=== PATIENT | female | born 1995 | race Caucasian/White ===

== ENCOUNTER 2023-02-23 13:37 | Inpatient (IN) ==
[2023-02-24] MEDS ORDERED: OXYTOCIN 30 UNITS/500 ML BAG IV PRN ×3 (09:20→22:53)
[2023-02-24] MEDS ORDERED: LIDOCAINE 1% LOCAL 20 ML VIAL INFIL PRN (09:20)
[2023-02-24] MEDS ORDERED: PENICILLIN G POTASSIUM 6 MU in DEXTROSE 5% 250 ML IV STA (09:23)
--- NOTE | 2023-02-24 09:36 | History & Physical Report ---
Date of Service February 24, 2023 Assessment & Plan (1) Supervision of normal first : Plan: Admit to L&D for induction of labor with Pena balloon and pitocin VSSLabor induction with Pena balloon and Pitocin to be started. Patient is GBS positive. Will treat with Penicillin during labor. Category 1 FHT Epidural prn Admission and Anticipated Discharge Date Admission Date: February 24, 2023 History of Present Illness Chief Complaint: Normal at 40+ weeks gestation. Induction of labor. Primary Care Provider: Ford Barahona is a 27y/o female G1 currently at IU at 40 4/7 WGA with an KRUPA 02/20/2023 as determined by certain LMP who is here for IOL due to post dates. No complications associated to current . (-) contractions (irregular) (+) movement (-) fluid loss (-) vaginal bleeding External FHT and external uterine monitors used * Category 1 tracing with accels, no decels, and moderate variability * FHR at 125-30s Had regular appointments with Dr. Hernandez since second trimester. Previ ously being followed up by [facility] since her first trimester. Labs: (07/23/2022) * Blood type: O positive * Antibody screen: negative * H.7 (today) * Hct: 35.2 (today) * MCV: 87.6 (today) * WBC: 7.2 (today) * Plt: 123 (today) * Rubella: immune * VDRL/RPR: non-reactive * Gonorrhea: not detected * Chlamydia: not detected * HIV: non-reactive * HbSAg: non-reactive * Hep C IgG 13 yrs + old: non-reactive * GBS: positive * Declined CS, SMA, and Panorama Allergies Allergy/AdvReac Type Severity Reaction Status Date / Time No Known Allergies Allergy Verified 02/24/23 08:00 Home Medications Medication Instructions Recorded Confirmed Type prenat.vits,joselyn,[id number] 1 tab PO DAILY 08/29/22 02/24/23 History Patient History Medical History (Updated 02/24/23 @ 09:52 by Freda Blackman MD) Hx of migraines Scoliosis Supervision of normal first Varicella vaccination Surgical History S/P wisdom tooth extraction Family History Grandmother (Maternal) Breast cancer Denies family history of Ovarian cancer Colorectal cancer Social History (Updated 08/29/22 @ 13:10 by Brittany Akhtar) Smoking Status: Never smoker Do You Dip or Chew Tobacco: No; Hx Alcohol Use: No Hx Substance Use: No Preferred Language: [place] Tenter Frame Operator Required: No Beliefs That Will Affect Care: None marital status: marital status details: Ke White (24) [phone] Current Living Situation: Spouse Current Living Situation Comment: lives with spouse, outside [place] current occupational status: employed 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 Other Information That Helps Us Care for You: No Feels Safe at Home: No Is there a partner from a previous relationship who is making you feel unsafe now?: No Any Concerns about Your Family Situation: No Would You Like to Speak to Someone About Your Situation: No Safety Concerns: Feels Safe At This Time Assistive Devices: Contacts and Glasses 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 Denies shortness of breath or respiratory difficulty. no chest pain and no palpitations no dysuria no headache(s) Physical Exam Physical Exam: General: Alert, oriented x3. Afebrile. No acute distress. Eyes: Pupils equal and reactive to light bilaterally. Extraocular movement intact bilaterally. Cardiac: Regular rate and rhythm, no murmurs/rubs/gallops. Respiratory: Clear to auscultation bilaterally a/p, no wheezes/rales/rhonchi. No increased work of breathing. Symmetrical chest rise. No respiratory distress. Abdomen: Gravid; FHTs 125-130s, Position: Cephalic Pelvic: Dilation 2cm; Effacement 50; Station -[address] Hernandez Lower Extremities: No lower extremity edema or swelling. No deep calf pain. Omer's negative bilaterally Results & Data Vital Signs (Past 12 Hours) Vital Signs Temp Pulse Resp BP 02/24/23 07:55 20 02/24/23 07:55 36.6 C 20 02/24/23 07:56 94 H 125/83 Supervising Physician Co-Signing Physician Notes Resident Physician Supervision Note: I interviewed and examined the patient. Discussed with Dr. Blackman and agree with findings and plan as documented in the note. Any exceptions or clarifications are listed here: 27 yo G1 at 40 4/7 wga presents for IOL. +FM; denies reg ctx, LOF, VB. PNI: GBS+. VSS, fetus cat 1, irreg ctx. SVE 250/-2, cephalic confirmed by bsus. 35cc pena placed after verbal consent obtained, pt tolerated well. Will start pit as well. GBS+, pcn ordered. Epidural prn Documented By: Carlita Hernandez MD Resident Activity Tracking Resident Involvement: Resident Care Provided Care Provided: OB Delivery
[2023-02-24 10:02] LABS: Hematocrit (blood only) 35.2 % (37.0-47.0); Hemoglobin 11.7 g/dl (12.0-16.0); Mean Corpuscular Hemoglobin 29.1 pg (25.0-34.0); Mean Corpuscular Hgb Conc 33.2 g/dL (32.0-36.0); Mean Corpuscular Volume 87.6 fL (80.0-100.0); Mean Platelet Volume 11.7 fL (9.4-12.4); Platelet Count 123 K/uL (130-400); RDW Coefficient of Variation 14.8 % (11.5-14.5); RDW Standard Deviation 47.7 fL (36.4-46.3); Red Blood Count 4.02 M/uL (4.20-5.40); White Blood Count 7.22 K/ul (4.8-10.8)
[2023-02-24] MEDS: LACTATED RINGER'S 1,000 ML IV PRN ×3 (10:17→20:28)
--- NOTE | 2023-02-24 13:48 | Labor Progress Brief Note ---
Date of Service February 24, 2023 Subjective pena bulb out, feels some contractions Assessment & Plan (1) Supervision of normal first : Plan: 27 yo G1 at 40 4/7 wga admitted for iol VSS Fetus cat 1 Labor - now s/p arom, pit at 10 GBS+, pcn ordered epidural prn Admission and Anticipated Discharge Date Admission Date: February 24, 2023 Physical Exam Genitourinary: Manual OB Exam: + cervical dilation 4 cm, + cervical effacement 50%, + station -2 and + amniotic fluid (arom clear) OB Exam Monitor Tracing: + external FHT monitor used, + external uterine monitor used (q3-5) and + category I (120/mod/+accel/-decel) Results & Data Vital Signs (Past 12 Hours) Vital Signs Temp Pulse Resp BP 02/24/23 11:00 98.2 F 18 02/24/23 13:31 98.2 F 02/24/23 13:15 82 105/70 02/24/23 12:15 74 124/81 02/24/23 11:16 71 112/71 02/24/23 10:14 81 110/69 02/24/23 07:55 20 02/24/23 07:55 97.9 F 20 02/24/23 07:56 94 H 125/83 Coding Level of Care Code None Diagnoses Supervision of normal first Z34.00
[2023-02-24] MEDS: PENICILLIN G POTASSIUM 3 MU in DEXTROSE 5% 100 ML IV PRN ×2 (14:03→18:04)
[2023-02-24] MEDS ORDERED: ePHEDrine sulfate 50 MG/ML AMP ONE (15:37)
[2023-02-24] MEDS ORDERED: fentaNYL citrate PF 100 MCG/2 ML VIAL ONE (15:37)
[2023-02-24] MEDS ORDERED: BUPIVACAINE 0.25% PF 30 ML VIAL ONE (15:38)
[2023-02-24] MEDS ORDERED: SODIUM CHLORIDE 0.9% PF INJ 10 ML VIAL ONE (15:38)
[2023-02-24] MEDS ORDERED: fentaNYL 2MCG/ML ROPIVACAINE 1.25MG/ML 100 ML BAG EPI ONE (15:38)
[2023-02-24] MEDS ORDERED: LIDOCAINE 2%/EPINEPHRINE 1:200,000 20 ML PF ONE (15:38)
[2023-02-24] MEDS ORDERED: BUPIVACAINE 0.25% PF 30 ML VIAL EPI PRN (16:16)
[2023-02-24] MEDS ORDERED: fentaNYL citrate PF 100 MCG/2 ML VIAL EPI STA (16:16)
[2023-02-24] MEDS ORDERED: ePHEDrine sulfate 50 MG/ML AMP IV PRN (16:16)
[2023-02-24] MEDS ORDERED: BUPIVACAINE 0.25% PF 30 ML VIAL EPI STA (16:16)
[2023-02-24] MEDS ORDERED: SODIUM CHLORIDE 0.9% PF INJ 10 ML VIAL EPI STA (16:16)
[2023-02-24] MEDS ORDERED: NALOXONE HCL 1 MG in SODIUM CHLORIDE 0.9% 1000ML 1,000 ML IV PRN (16:16)
[2023-02-24] MEDS ORDERED: LIDOCAINE 2% MPF LOCAL 5 ML VIAL EPI PRN (16:16)
[2023-02-24] MEDS ORDERED: ROPIVACAINE 0.5% PF 5 MG/ML 20 ML VIAL EPI PRN (16:16)
[2023-02-24] MEDS ORDERED: LIDOCAINE 2%/EPINEPHRINE 1:200,000 20 ML PF EPI STA (16:16)
[2023-02-24] MEDS ORDERED: fentaNYL citrate PF 100 MCG/2 ML VIAL EPI PRN (16:16)
[2023-02-24] MEDS ORDERED: NALBUPHINE HCL INJ 10 MG/ML AMP IV PRN (16:16)
[2023-02-24] MEDS ORDERED: fentaNYL 2MCG/ML ROPIVACAINE 1.25MG/ML 100 ML BAG EPI PRN (16:16)
[2023-02-24] MEDS ORDERED: diphenhydrAMINE 50 MG/ML VIAL IV PRN (16:16)
[2023-02-24] MEDS ORDERED: NALOXONE HCL 0.4 MG/1 ML VIAL/CARP IV PRN (16:16)
[2023-02-24] MEDS ORDERED: SODIUM CHLORIDE 0.9% PF INJ 10 ML VIAL EPI PRN (16:16)
--- NOTE | 2023-02-24 16:18 | Anesthesiology Consultation ---
Date of Service February 24, 2023 Assessment & Plan (1) Encounter for pre-operative examination: Chart Review Chart Review: Patient NOT seen in Pre Admission Testing and Acceptable Risk for Labor Epidural Consults Requested none History Height/Weight Height: 5 ft 5 in Weight: 65.317 kg Allergies Allergy/AdvReac Type Severity Reaction Status Date / Time No Known Allergies Allergy Verified 02/24/23 08:00 Medications Home Medications Medication Instructions Recorded Confirmed Last Taken prenat.vits,joselyn,sle-[id number]-[id number] 1 tab PO DAILY 08/29/22 02/24/23 02/23/23 Active Medications Generic Name Dose Route Start Last Admin Trade Name Freq PRN Reason Stop Dose Admin Oxytocin 30 units in 500 mls @ 12 mls/hr 02/24/23 09:20 02/24/23 14:45 Pitocin IV 02/26/23 09:19 0.72 units/hr .Q24H PRN 12 mls/hr Labor Induction/Augmentation Titration Protocol 0.72 UNITS/HR Lactated Ringer's 1,000 mls @ 125 mls/hr 02/24/23 09:20 02/24/23 16:26 Lr IV 02/26/23 09:19 125 mls/hr .Q8H PRN Infusion L&D Protocol Protocol Penicillin G Potassium 3 mu/ 106 mls @ 100 mls/hr 02/24/23 12:21 02/24/23 16:48 Dextrose IV 03/06/23 12:20 Infused Q4H PRN Titration GBS(+) Until Delivery Past Medical History Medical History Hx of migraines Scoliosis Supervision of normal first Varicella vaccination Past Family History Family History Grandmother (Maternal) Breast cancer Denies family history of Ovarian cancer Colorectal cancer Past Surgical History Surgical History S/P wisdom tooth extraction Past Anesthesia History No Hx of Anesthesia Complications and No Family Hx of Anesthesia Complications History of PONV No Hx of PONV and No Hx of Motion Sickness Social History Smoking Status: Never smoker Do You Dip or Chew Tobacco: No Hx Alcohol Use: No Hx Substance Use: No substance use type: does not use Physical Exam Vital Signs Last Vital Signs Temp 36.9 C 02/24/23 15:00 Pulse 61 02/24/23 16:57 Resp 20 02/24/23 15:00 BP 112/63 02/24/23 16:57 Pulse Ox 98 02/24/23 16:54 Testing Laboratory Results 02/24/23 09:30
[2023-02-24] MEDS ORDERED: cefOXitin 2,000 MG in DEXTROSE 5% 50 ML IV STA (22:06)
--- NOTE | 2023-02-24 22:41 | Delivery Summary ---
Vaginal Delivery Summary Date of Service February 24, 2023 Vaginal Delivery Summary and 3rd Degree LAC PREOPERATIVE DIAGNOSIS: 1. Single intrauterine at 40 4/7 wga 2. Post-dates IOL 3. GBS+ POSTOPERATIVE DIAGNOSIS: 1. Single intrauterine at 40 4/7 wga 2. Post-dates IOL 3. GBS+ 4. Delivered PROCEDURE: 1. Normal spontaneous vaginal delivery. SURGEON: Carlita Hernandez MD ANESTHESIA: Epidural. ESTIMATED BLOOD LOSS: 400 mL FLUIDS: Continuous LR. URINE OUTPUT: None. COMPLICATIONS: None. CONDITION: Stable. INDICATIONS: 27 yo G1 at 40 4/7 wga presented for post-dates IOL today. She was approximately 2cm on arrival. Penicillin was started for GBS+ prophylaxis. 35cc pena was placed and pitocin was started. Following pena bulb expulsion, she underwent AROM. She then received an epidural for pain control and continued to progress to complete and desired to push. FINDINGS: A viable female , weight pending with Apgars of 8 and 9 at 1 and 5 minutes respectively. SPECIMEN: Cord blood OPERATIVE REPORT: The patient progressed to 10 cm, 100% effaced and +2 station, pushed for 15min over intact perineum with anesthesia to deliver a viable female infant, weight and Apgars as above. Head of delivered in HANNAH position. No nuchal cord was present. Body and shoulders were delivered without difficulty. was delivered to maternal abdomen and nursing staff. Delayed cord clamping was performed for 60 seconds. Cord was clamped and cut. Cord blood was obtained. Placenta delivered spontaneously intact with 3-vessel cord. IV oxytocin and fundal massage were given for excellent hemostasis. Vagina, cervix, perineum, and placenta were inspected. A 3c degree laceration was noted with rectal exam confirming no mucosal involvement. Internal anal sphincter was reapproximated in end to end fashion using 2-0 vicryl. The deep tissue was also reapproximated using 2-0 vicryl. Remainder of repair was performed using 3-0 vicryl and there was excellent hemostasis. Rectal exam was performed at conclusion of repair confirming no stitches in the rectum. Cefoxitin 2g x 1 was ordered for antibiotic prophylaxis. Sponge and needle counts correct x2. No sponges were left behind. Mother and stable in immediate period[place] [facility] [place] Vaginal Delivery Codes: 71729 global code for the antepartum, delivery, and post- Delivery Type Details: and 3rd Degree LAC
[2023-02-24] MEDS ORDERED: HYDROCORTISONE ACETATE 25 MG SUPP PR PRN (22:53)
[2023-02-24] MEDS ORDERED: DIPHTHERIA/TETANUS/PERTUSSIS Vaccine (Tdap, Age 7+yrs) 0.5mL SYR/VL IM ONE (22:53)
[2023-02-24] MEDS ORDERED: BENZOCAINE 20% SPRY 85 APPLN/85 GM CAN EXT PRN (22:53)
[2023-02-24] MEDS ORDERED: ACETAMINOPHEN 325 MG TAB PO PRN (22:53)
--- NOTE | 2023-02-24 23:04 | Anesthesia Procedure Note ---
Date of Service February 24, 2023 Anesthesia Post Epidural Note Vital Signs Vital Signs: Temp Pulse Resp BP Pulse Ox 37.3 C 100 H 16 105/59 L 96 02/24/23 22:19 02/24/23 22:49 02/24/23 22:49 02/24/23 22:49 02/24/23 22:35 Pain Intensity Bilateral Abdomen: Pain Intensity: 5 Notes Mental Status: alert / awake / arousable and participated in evaluation Nausea / Vomiting: adequately controlled Pain: adequately controlled Airway Patency, RR, SpO2: stable & adequate BP & HR: stable & adequate Hydration State: stable & adequate Neuraxial Anesthesia: was administered and sensory block is resolving Anesthetic Complications: no major complications apparent and Pt Satisfied with anesthetic care Epidural: Removed without complications, With tip intact and See Notes
[2023-02-24] MEDS: IBUPROFEN 600 MG TAB PO PRN (23:31)
--- NOTE | 2023-02-25 06:17 | Obstetrical Progress Note ---
Date of Service <Freda Blackman MD - Last Filed: 02/25/23 06:52> February 25, 2023 Assessment & Plan <Freda Blackman MD - Last Filed: 02/25/23 06:52> (1) Spontaneous vaginal delivery: Patient with the above mentioned history and findings was evaluated at bedside and found awake, alert, oriented in all spheres, afebrile, and in no acute distress. Overall, patient is doing well clinically. Will order new Hb and Hct levels to r/o anemia as a cause for her lightheadedness. Will encourage ambulation as tolerated and will resume regular diet. Will continue monitoring pain levels and management with current regimen. Patient is encouraged to breastfeed and to notify changes in normal lochia such as excessive bleeding (using more than 1 pad per hour), foul smell, or purulent appearance. Should she remain clinically and hemodynamically stable, will consider discharge tomorrow. All questions were answered. <Carlita Hernandez MD - Last Filed: 02/25/23 07:08> (1) Spontaneous vaginal delivery: Subjective <Freda Blackman MD - Last Filed: 02/25/23 06:52> [place] is a 27 y/o female who is now PPD # 1 following at 40 4/7 weeks. Reports feeling well overall this morning. Refers mild abdominal cramping & 3/10 pain well managed on analgesics. Voiding spontaneously. Tolerating meals overnight and able to ambulate some. She has not passed gas or had a bowel movement. Some persistent lochia with some improvement this morning. . She complains of lightheadedness when she stood up to move to post buckner and when going to the bathroom. She has not tried to stand since then. She denies headaches, palpitations, SOB, chest pain, vision changes, RUQ pain, or any other symptom. Blood type is O positive and last Hb (02/24) was 11.7. She is GBS positive treated during labor, and rubella immune. Constitutional: no fever, no chills or no sweats Denies shortness of breath or difficulty breathing Cardiovascular: no chest pain or no palpitations Breast: no breast pain Genitourinary (female): no dysuria Neurologic: no headache(s) Denies changes in vision Physical Exam <Freda Blackman MD - Last Filed: 02/25/23 06:52> General: Alert. Oriented to person, time, and place. Afebrile. No acute distress. Eyes: pupils equal and reactive to light bilaterally, extraocular movements intact. Cardiac: Regular rate and rhythm, no murmurs/rubs/gallops. Respiratory: Clear to auscultation bilaterally a/p, no wheezes/rales/rhonchi. No increased work of breathing. Symmetrical chest rise. No respiratory distress. Abdomen: Soft, nontender, nondistended. Bowel sounds present. Uterus: Uterine fundus firm, mildly tender, and palpable at umbilicus. Lower Extremities: No lower extremity edema or swelling. No deep calf pain. Omer's negative bilaterally. Psych: Euthymic affect. Mood and affect congruence. Regular speech rate and content. Results & Data <Freda Blackman MD - Last Filed: 02/25/23 06:52> Vital Signs (Past 12 Hours) Vital Signs Temp Pulse Pulse Resp BP BP Pulse Ox 02/25/23 04:00 36.6 C 82 16 99/64 L 96 02/25/23 00:45 36.7 C 72 16 105/69 97 02/25/23 00:19 37.2 C 18 02/24/23 23:19 18 02/24/23 22:49 16 02/24/23 22:34 16 02/24/23 23:49 16 02/24/23 23:04 16 02/24/23 22:19 37.3 C 18 02/25/23 00:19 88 110/57 L 02/25/23 00:04 103 H 115/67 02/24/23 23:49 100 H 107/65 02/24/23 19:30 16 02/24/23 19:30 16 02/24/23 20:00 16 02/24/23 20:00 16 02/24/23 20:30 16 02/24/23 20:30 16 02/24/23 23:34 100 H 103/66 02/24/23 23:19 129 H 103/62 02/24/23 23:04 123 H 101/56 L 02/24/23 22:49 100 H 105/59 L 02/24/23 22:35 102 H 96 02/24/23 22:34 105 H 111/70 02/24/23 22:30 111 H 96 02/24/23 22:25 107 H 96 02/24/23 22:20 103 H 95 02/24/23 22:19 113 H 112/61 02/24/23 22:15 109 H 95 02/24/23 22:16 108 H 104/61 02/24/23 22:10 113 H 95 02/24/23 22:05 118 H 94 02/24/23 22:00 137 H 122/76 95 02/24/23 21:55 114 H 95 02/24/23 21:50 152 H 95 02/24/23 21:45 130 H 96 02/24/23 21:44 112 H 89 L 02/24/23 21:39 120 H 96 02/24/23 21:34 99 H 97 02/24/23 21:30 99 H 16 109/67 02/24/23 21:29 92 H 97 02/24/23 21:24 84 98 02/24/23 21:19 76 97 02/24/23 21:16 84 114/65 02/24/23 21:14 80 96 02/24/23 21:09 86 96 02/24/23 21:00 16 02/24/23 21:00 37.4 C 16 02/24/23 21:04 82 97 02/24/23 21:01 76 106/67 02/24/23 20:59 81 97 02/24/23 20:54 83 96 02/24/23 20:49 82 97 02/24/23 20:46 77 111/69 02/24/23 20:44 81 97 02/24/23 20:39 75 97 02/24/23 20:34 86 97 02/24/23 20:31 85 109/69 02/24/23 20:29 79 97 02/24/23 20:24 89 98 02/24/23 20:19 80 98 02/24/23 20:17 83 112/70 02/24/23 20:14 82 98 02/24/23 20:09 96 H 98 02/24/23 20:04 81 97 02/24/23 20:01 100 H 119/79 02/24/23 19:59 84 97 02/24/23 19:54 76 98 02/24/23 19:49 68 97 02/24/23 19:46 66 106/61 02/24/23 19:44 66 97 02/24/23 19:39 78 98 02/24/23 19:34 66 97 02/24/23 19:31 66 100/58 L 02/24/23 19:29 66 98 02/24/23 19:24 68 98 02/24/23 19:19 68 99 02/24/23 19:16 67 106/65 02/24/23 19:14 64 98 02/24/23 19:09 70 98 02/24/23 19:04 69 98 02/24/23 19:02 67 111/70 02/24/23 19:00 16 02/24/23 19:00 36.7 C 16 02/24/23 18:59 66 98 02/24/23 18:54 69 99 02/24/23 18:49 67 99 02/24/23 18:46 62 104/65 02/24/23 18:44 64 98 02/24/23 18:39 63 98 02/24/23 18:34 65 98 02/24/23 18:30 63 20 104/62 02/24/23 18:29 62 98 02/24/23 18:24 81 99 02/24/23 18:19 75 99 O2 Del Method 02/25/23 04:00 Room Air 02/25/23 00:45 Room Air 02/25/23 00:19 02/24/23 23:19 02/24/23 22:49 02/24/23 22:34 02/24/23 23:49 02/24/23 23:04 02/24/23 22:19 02/25/23 00:19 02/25/23 00:04 02/24/23 23:49 02/24/23 19:30 02/24/23 19:30 02/24/23 20:00 02/24/23 20:00 02/24/23 20:30 02/24/23 20:30 02/24/23 23:34 02/24/23 23:19 02/24/23 23:04 02/24/23 22:49 02/24/23 22:35 02/24/23 22:34 02/24/23 22:30 02/24/23 22:25 02/24/23 22:20 02/24/23 22:19 02/24/23 22:15 02/24/23 22:16 02/24/23 22:10 02/24/23 22:05 02/24/23 22:00 02/24/23 21:55 02/24/23 21:50 02/24/23 21:45 02/24/23 21:44 02/24/23 21:39 02/24/23 21:34 02/24/23 21:30 02/24/23 21:29 02/24/23 21:24 02/24/23 21:19 02/24/23 21:16 02/24/23 21:14 02/24/23 21:09 02/24/23 21:00 02/24/23 21:00 02/24/23 21:04 02/24/23 21:01 02/24/23 20:59 02/24/23 20:54 02/24/23 20:49 02/24/23 20:46 02/24/23 20:44 02/24/23 20:39 02/24/23 20:34 02/24/23 20:31 02/24/23 20:29 02/24/23 20:24 02/24/23 20:19 02/24/23 20:17 02/24/23 20:14 02/24/23 20:09 02/24/23 20:04 02/24/23 20:01 02/24/23 19:59 02/24/23 19:54 02/24/23 19:49 02/24/23 19:46 02/24/23 19:44 02/24/23 19:39 02/24/23 19:34 02/24/23 19:31 02/24/23 19:29 02/24/23 19:24 02/24/23 19:19 02/24/23 19:16 02/24/23 19:14 02/24/23 19:09 02/24/23 19:04 02/24/23 19:02 02/24/23 19:00 02/24/23 19:00 02/24/23 18:59 02/24/23 18:54 02/24/23 18:49 02/24/23 18:46 02/24/23 18:44 02/24/23 18:39 02/24/23 18:34 02/24/23 18:30 02/24/23 18:29 02/24/23 18:24 02/24/23 18:19 <Carlita Hernandez MD - Last Filed: 02/25/23 07:08> Co-Signing Physician Notes Resident Physician Supervision Note: I interviewed and examined the patient. Discussed with Dr. Blackman and agree with findings and plan as documented in the note. Any exceptions or clarifications are listed here: PP1 s/p , doing well. VSS, exam benign and wnl. [place] a little lightheaded standing up when moved over to pp and first time up to bathroom but feels fine sitting. Suspect related to getting for first time but will get cbc to make sure ok. Continue routine pp care Documented By: Carlita Hernandez MD Resident Activity Tracking <Freda Blackman MD - Last Filed: 02/25/23 06:52> Resident Involvement: Resident Care Provided Care Provided: OB Delivery
[2023-02-25 07:22] LABS: Hematocrit (blood only) 27.6 % (37.0-47.0); Hemoglobin 9.2 g/dl (12.0-16.0); Mean Corpuscular Hemoglobin 29.5 pg (25.0-34.0); Mean Corpuscular Hgb Conc 33.3 g/dL (32.0-36.0); Mean Corpuscular Volume 88.5 fL (80.0-100.0); Mean Platelet Volume 11.2 fL (9.4-12.4); Platelet Count 122 K/uL (130-400); RDW Coefficient of Variation 14.7 % (11.5-14.5); RDW Standard Deviation 47.7 fL (36.4-46.3); Red Blood Count 3.12 M/uL (4.20-5.40); White Blood Count 10.35 K/ul (4.8-10.8)
[2023-02-25] MEDS: DOCUSATE SODIUM 100 MG CAP PO SCH ×2 (07:39→21:11)
[2023-02-25] MEDS: FERROUS SULFATE 325 MG TAB PO SCH (07:39)
[2023-02-25] MEDS: PRENATAL VITAMIN 1 TAB PO SCH (07:39)
[2023-02-25] MEDS: IBUPROFEN 600 MG TAB PO PRN ×3 (07:39→21:11)
[2023-02-25] MEDS ORDERED: bisacodyL 5 MG TABEC PO SCH (20:00)
[2023-02-26] MEDS: IBUPROFEN 600 MG TAB PO PRN (04:20)
--- NOTE | 2023-02-26 06:39 | Obstetrical Progress Note ---
Date of Service <Freda Blackman MD - Last Filed: 02/26/23 07:41> February 26, 2023 Assessment & Plan <Freda Blackman MD - Last Filed: 02/26/23 07:41> (1) Spontaneous vaginal delivery: Patient with the above mentioned history and findings was evaluated at bedside and found clinically and hemodynamically stable, afebrile, awake, alert, oriented x3, and in no acute distress. Overall she seems stable and is fit to go home today. Discharge instructions were discussed. Her pain will be managed with Tylenol, Advil, Ibuprofen, or Motrin PRN. She is to call to schedule and appointment with her OB for 6 weeks after discharge for her follow up evaluation. All questions were answered. <Trinidad Luz MD, FACOG - Last Filed: 02/26/23 07:45> (1) Spontaneous vaginal delivery: Subjective <Freda Blackman MD - Last Filed: 02/26/23 07:41> [place] is a 27 y/o female who is now PPD # 2 following at 40 4/7 weeks. Reports feeling well overall this morning. Refers mild abdominal cramping & 2/10 pain well managed on analgesics. Voiding spontaneously. Tolerating meals overnight and able to ambulate some. She has passed gas but no bowel movements yet. Some persistent lochia with some improvement this morning. . She denies recurrence of her lightheadedness when standing or any other time. She denies any other additional symptom. Blood type is O positive and last Hb 9.2 She is GBS positive treated during labor, and rubella immune. Constitutional: no fever, no chills or no sweats Denies shortness of breath or difficulty breathing Cardiovascular: no chest pain or no palpitations Breast: no breast pain Genitourinary (female): no dysuria Neurologic: no headache(s) Denies changes in vision Physical Exam <Freda Blackman MD - Last Filed: 02/26/23 07:41> General: Alert. Oriented to person, time, and place. Afebrile. No acute distress. Eyes: pupils equal and reactive to light bilaterally, extraocular movements intact. Cardiac: Regular rate and rhythm, no murmurs/rubs/gallops. Respiratory: Clear to auscultation bilaterally a/p, no wheezes/rales/rhonchi. No increased work of breathing. Symmetrical chest rise. No respiratory distress. Abdomen: Soft, nontender, nondistended. Bowel sounds present. Uterus: Uterine fundus firm, mildly tender, and palpable below umbilicus. Lower Extremities: No lower extremity edema or swelling. No deep calf pain. Omer's negative bilaterally. Psych: Euthymic affect. Mood and affect congruence. Regular speech rate and content. Results & Data <Freda Blackman MD - Last Filed: 02/26/23 07:41> Vital Signs (Past 12 Hours) Vital Signs Temp Pulse Resp BP Pulse Ox O2 Del Method 02/26/23 04:15 36.6 C 88 16 115/75 97 Room Air 02/25/23 20:35 36.6 C 98 H 16 99/63 L 97 Room Air <Trinidad Luz MD, FACOG - Last Filed: 02/26/23 07:45> Co-Signing Physician Notes Resident Physician Supervision Note: I interviewed and examined the patient. Discussed with Dr. Blackman and agree with findings and plan as documented in the note. Any exceptions or clarifications are listed here: Doing well. Plan d/c. Instructions given. Documented By: Trinidad Luz MD, FACOG Resident Activity Tracking <Freda Blackman MD - Last Filed: 02/26/23 07:41> Resident Involvement: Resident Care Provided Care Provided: OB Delivery
[2023-02-26] MEDS: DOCUSATE SODIUM 100 MG CAP PO SCH (08:16)
[2023-02-26] MEDS: PRENATAL VITAMIN 1 TAB PO SCH (08:16)
[2023-02-26] MEDS: FERROUS SULFATE 325 MG TAB PO SCH (08:16)
== END 2023-02-26 14:30 | disposition home or self-care (01) | DRG 768 ==
LOC: 4S1 02-24 07:39 → 4E2 02-25 00:54
DX: O70.20 Third degree perineal laceration during delivery, unspecified; Z37.0 Single live birth; Z3A.40 40 weeks gestation of pregnancy; O48.0 Post-term pregnancy; O99.824 Streptococcus B carrier state complicating childbirth